=== PATIENT | female | born 1985 | race Caucasian/White ===

== ENCOUNTER 2022-12-30 09:49 | Emergency (ER) | payer OTHER, SELFPAY ==
[2022-12-30 09:55] VITALS: BP 112/83; PULSE 124; RESP 16; TEMP 37.3; O2SAT 98; BMI 28.1
--- NOTE | 2022-12-30 10:06 | ED.ALLEREA1 ---
HPI - Allergic Reaction General Chief complaint: Allergic Reaction Stated complaint: ALLERGIC REACTION TO BEE STING Time Seen by Provider: 12/30/22 09:53 Source: patient Mode of arrival: walk-in Limitations: no limitations History of Present Illness HPI narrative: 37-year-old female presents to the emergency department for bee sting. She was stung once on the side of her face and twice on the back of her head. This happened just about twenty minutes ago. She's had some bad reactions in the past. No difficulty breathing or swallowing. She noted some redness on the side of her face and some pain on the back of her head. She did not develop a generalized rash. Related Data Previous Rx's Medication Instructions Recorded prednisone 20 mg tablet 20 mg PO DAILY #5 tabs 12/30/22 Allergies Allergy/AdvReac Type Severity Reaction Status Date / Time bee venom protein (honey bee) Allergy Severe Anaphylaxis Verified 12/30/22 10:08 Review of Systems ROS Narrative A ten point review of systems is negative except as noted above. Exam Narrative Exam Narrative: Nurses note and vital signs reviewed and patient is not hypoxic. General: The patient appears well and in no apparent distress. Patient is resting comfortably on cart. Skin: Warm, dry, no pallor noted. There is some mild erythema on the left side of her face and the back of her scalp Head: Normocephalic, atraumatic Eye: Normal conjunctiva, no drainage Ears, Nose, Mouth, and Throat: oral mucosa is moist. Nares patent. tongue not swollen Cardiovascular: Regular Rate and Rhythm Respiratory: Patient is in no distress, no accessory muscle use, lungs are clear to auscultation, no wheezing, rales or rhonchi Back: non-tender GI: nontender Musculoskeletal: The patient has no evidence of calf tenderness, no pitting edema, symmetrical pulses noted bilaterally Neurological: A&O, normal speech Psychiatric: Cooperative Constitutional Vital Signs, click to edit/add: Last Vital Signs Temp 99.1 F 12/30/22 09:55 Pulse 124 H 12/30/22 09:55 Resp 16 12/30/22 09:55 BP 112/83 12/30/22 09:55 Pulse Ox 98 12/30/22 09:55 O2 Del Method Room Air 12/30/22 09:55 Course Vital Signs Vital signs: Vital Signs Temperature 99.1 F 12/30/22 09:55 Pulse Rate 124 H 12/30/22 09:55 Respiratory Rate 16 12/30/22 09:55 Blood Pressure 112/83 12/30/22 09:55 Pulse Oximetry 98 12/30/22 09:55 Oxygen Delivery Method Room Air 12/30/22 09:55 Temperature 99.1 F 12/30/22 09:55 Pulse Rate 124 H 12/30/22 09:55 Respiratory Rate 16 12/30/22 09:55 Blood Pressure 112/83 12/30/22 09:55 Pulse Oximetry 98 12/30/22 09:55 Oxygen Delivery Method Room Air 12/30/22 09:55 MDM - Allergic Reaction MDM Narrative Medical decision making narrative: the patient was given IV site Medrol and Benadryl and improved and she was able to be discharged home. Treatment diagnosis and follow-up were discussed with the patient. She was placed on a short course of prednisone. I've no clinical suspicion of anaphylaxxis. Differential Diagnosis Differential diagnosis: Likely anaphylaxis, allergic reaction and other (localized reaction to bee sting) Discharge Plan Discharge Chief Complaint: Allergic Reaction Clinical Impression: Bee sting Patient Disposition: Home, Self-Care Time of Disposition Decision: 10:55 Condition: Good Mode of Transportation: Private Vehicle Prescriptions / Home Meds: New prednisone 20 mg tablet 20 mg PO DAILY Qty: 5 0RF Instructions: Insect Bite or Sting (ED) Stand Alone Forms: Portal Instructions Referrals: Physician,Non-Staff, MD [Primary Care Provider] - 1 week Discharge Date/Time: 12/30/22 11:19
[2022-12-30] MEDS: DIPHENHYDRAMINE HCL 50 MG/ML (1ML) VIAL 25 MG IV (10:13)
[2022-12-30] MEDS: METHYLPREDNISOLONE SOD SUCC PF 125 MG/2 ML VIAL IVP (10:13)
[2022-12-30 10:19] VITALS: PULSE 100; RESP 22; O2SAT 100
[2022-12-30 10:42] VITALS: PULSE 90; RESP 20; O2SAT 100
--- NOTE | 2022-12-30 10:45 | PC.NURSE ---
Red raised areas to face and neck improved; patient reports feeling relief from pain to area. Denies any SOB or any discomfort, respirations non labored; visiting with visitors at this time. Denies needs at present.
== END 2022-12-30 11:19 | disposition home or self-care (01) ==
PROVIDERS: Emergency Provider Emergency Medicine
DX: T63.441A Toxic effect of venom of bees, accidental (unintentional), initial encounter (principal)
CPT/HCPCS: 96374; 99284; J2930